=== PATIENT | female | born 2000 | race Caucasian/White ===

== ENCOUNTER 2021-05-26 10:52 | Emergency (ER) | payer BC ==
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
[2021-05-26 12:17] LABS: U PREG PATIENT NEGATIVE (NEG)
[2021-05-26 12:20] LABS: BARBITURATES NEG (NEG); BENZODIAZEPINES NEG (NEG); CANNABINOIDS NEG (NEG); COCAINE NEG (NEG); METHADONE NEG (NEG); OPIATES NEG (NEG); PHENCYCLIDINE NEG (NEG)
[2021-05-26 12:32] LABS: CLARITY,URINE HAZY; COLOR,URINE YELLOW; GLUCOSE,URINE NEG (NEG)
[2021-05-26 12:34] LABS: BACTERIA,URINE FEW /HPF (0-FEW); BILIRUBIN,URINE NEG (NEG); NITRITE,URINE NEG (NEG); RBC,URINE 0 /HPF (0-2); SQUAMOUS EPITHELIAL CELL,UR MOD /LPF
[2021-05-26 12:40] LABS: AMPHETAMINE/METHAMPHETAMINE NEG (NEG)
== END 2021-05-26 13:04 | disposition home or self-care (01) ==
LOC: ER 10:52
DX: F10.129 Alcohol abuse with intoxication, unspecified (principal); Z88.0 Allergy status to penicillin; Y90.8 Blood alcohol level of 240 mg/100 ml or more
CPT/HCPCS: 36415; 80307; 81001; 81025; 87086; 99283